=== PATIENT | male | born 1980 | race Caucasian/White ===

== ENCOUNTER 2017-03-10 10:39 | Emergency (ER) | payer OTHER ==
[2017-03-10 11:15] VITALS: BP 137/79
--- NOTE | 2017-03-10 12:43 | EDM.PDOC ---
ED HPI GENERAL MEDICAL PROBLEM - General Chief Complaint: Upper Extremity Injury/Pain Stated Complaint: HAND INJURY Time Seen by Provider: 03/10/17 12:08 Source of Information: Reports: Patient History Limitations: Reports: No Limitations - History of Present Illness INITIAL COMMENTS - FREE TEXT/NARRATIVE: 36-year-old male presents for evaluation treatment of frostbite. Patient reports frostbite to the right hand second and third digits. 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 Patient reports that he was outside for work today and yesterday. He works for [employer]. States that he was wearing proper attire. 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 He has appreciated blistering, pallor, swelling and erythema to the 2 digits. He states that they do cause discomfort but feels that the pink anatomy clearly be controlled with Tylenol and Motrin. Patient is right-handed. Right 3-Middle finger Pain Score (Numeric/FACES): 5 - Related Data Allergies Allergy/AdvReac Type Severity Reaction Status Date / Time codeine Allergy Nausea Verified 12/30/15 13:38 CDT Home Meds: Home Meds . [No Known Home Meds] 12/28/15 [History] Past Medical History Cardiovascular History: Reports: None Respiratory History: Reports: None Gastrointestinal History: Reports: GERD Other Gastrointestinal History: uses tums prn Genitourinary History: Reports: None Musculoskeletal History: Reports: Other (See Below) Other Musculoskeletal History: hands and left arm defect at Neurological History: Reports: None Psychiatric History: Reports: Depression Endocrine/Metabolic History: Reports: None Hematologic History: Reports: None Immunologic History: Reports: None Oncologic (Cancer) History: Reports: None Dermatologic History: Reports: None - Infectious Disease History Infectious Disease History: Reports: Chicken Pox - Past Surgical History Other Musculoskeletal Surgeries/Procedures:: fracture left arm Social & Family History - Family History Family Medical History: Noncontributory - Tobacco Use Smoking Status *Q: Former Smoker Used Tobacco, but Quit: Yes Month Tobacco Last Used: 7 Second Hand Smoke Exposure: No - Caffeine Use Caffeine Use: Reports: Coffee, Soda, Tea - Recreational Drug Use Recreational Drug Use: No Review of Systems - Review of Systems Review Of Systems: See Below Skin: Reports: Pallor (right hand 2nd digit), Erythema (right hand 2nd 3rd digits). Denies: Wound Neurological: Reports: Numbness (right hand 2nd and 3rd digits) ED EXAM, GENERAL - Physical Exam Exam: See Below Exam Limited By: No Limitations General Appearance: Alert, WD/WN, No Apparent Distress Respiratory/Chest: No Respiratory Distress, Lungs Clear, Normal Breath Sounds Cardiovascular: Regular Rate, Rhythm, No Murmur Peripheral Pulses: 2+: Radial (L), Radial (R) Extremities: Other (right hand 2nd and 3rd proximal phalnex present; minor swelling and erythema to the fingers, approximatley 1.5cm blister to the 2nd finger, approximately 1cm area of pallor to the distal end of the 2nd digit) Neurological: Alert, Oriented, Normal Cognition Psychiatric: Normal Affect, Normal Mood Skin Exam: Warm, Dry, Normal Color Course - Vital Signs Last Recorded V/S: Last Vital Signs Temp 36.7 C 03/10/17 11:14 Pulse 81 03/10/17 11:14 Resp 20 03/10/17 11:14 BP 137/79 03/10/17 11:14 Pulse Ox 97 03/10/17 11:14 - Re-Assessments/Exams Free Text/Narrative Re-Assessment/Exam: 03/10/17 12:39 Patient feels that Tylenol and Motrin will adequately treat his pain. He declines any additional pain medication. Case discussed with Dr. Bach. Recommend treatment with burn dressings and close follow-up this week. Patient will follow-up with Dr. Harrison, occupational health this week. Discharge instructions as documented. Departure - Departure Time of Disposition: 12:39 Disposition: Home, Self-Care 01 Condition: Fair Clinical Impression: Frostbite Qualifiers: Encounter type: initial encounter Qualified Code(s): T33.90XA - Superficial frostbite of unspecified sites, initial encounter - Discharge Information Instructions: Frostbite, [id number] Referrals: PCP,None [Primary Care Provider] - Trevor Harrison MD [Physician] - Forms: ED Department Discharge Additional Instructions: take A 325 mg aspirin daily. [id number] Tylenol or Motrin as needed for pain relief. Follow up with occupational health, Dr. Harrison, this week. Call [phone] to schedule with him. Bacitracin to the wound twice a day. Change the burn dressing twice a day. Monitor for signs of infection such as pus, fevers, chills, nausea or vomiting. Avoid the cold as much as possible. may return to work but no work outside at this time. When you need to do outside make sure that your hands are well covered with thick gloves and only be outside for a short period of time. Please return to the ER if your symptoms change or worsen.
== END 2017-03-10 12:52 | disposition home or self-care (01) ==
LOC: JD.ED 10:39
DX: T33.531A Superficial frostbite of right finger(s), initial encounter (principal); Z88.5 Allergy status to narcotic agent; Z87.891 Personal history of nicotine dependence
CPT/HCPCS: 99283